=== PATIENT | male | born 1960 | race Two or more races ===

== ENCOUNTER 2018-02-24 23:43 | Emergency (ER) | payer BC, OTHER ==
[~2018-02-24] VITALS: Ht 170.2 cm; Wt 74.4 kg
--- NOTE | 2018-02-24 23:54 | NUR ---
PT BBRA FROM HOME C/O "TOOK SOME SUPPLEMENTS AT 1400 AND STARTED HAVING HEART BURN AT 1600 WITH +N/V, -D". PT IS AAOX4. -DIZZINESS. PT UNABLE TO RECALL EXACT NAME OF SUPPLEMENT TAKEN. PT STATES " I AM TIRED AND DEHYDRATED AND VOMITTED AROUND 18 TIMES TODAY". RESP EVEN AND UNLABORED. NO S/S OF ACUTE DISTRESS NOTED. VSS. PT SAFETY AND COMFORT MEASURES IN PLACE. PT PLACED ON MONITOR AND POX. AWAITING MD FOR EVAL.
[2018-02-25] MEDS ORDERED: ONDANSETRON HCL/PF 4 MG/2 ML VIAL IVP ONE (00:30)
[2018-02-25] MEDS ORDERED: IV NS 0.9% 1,000 ML BAG IV ONE (00:30)
[2018-02-25] MEDS ORDERED: PANTOPRAZOLE 40 MG VIAL IV ONE (00:30)
[2018-02-25] MEDS ORDERED: PANTOPRAZOLE 40 MG VIAL ONE (00:45)
[2018-02-25] MEDS ORDERED: ONDANSETRON HCL/PF 4 MG/2 ML VIAL ONE (00:45)
[2018-02-25 00:54] LABS: EOSINOPHILS % (AUTO) 0.2 % (0.0-6.0); HEMATOCRIT 43 % (39-51); HEMOGLOBIN 14.6 g/dL (13.5-17.5); LYMPHOCYTES # (AUTO) 0.2 /CMM (0.8-4.8); LYMPHOCYTES % (AUTO) 1.7 % (20.0-44.0); MEAN CORPUSCULAR HGB CONC 34 g/dl (31.0-36.0); MEAN CORPUSCULAR VOLUME 87 fL (80-96); MONOCYTES # (AUTO) 0.3 /CMM (0.1-1.30); MONOCYTES % (AUTO) 3.7 % (2.0-12.0); NEUTROPHILS # (AUTO) 8.7 /CMM (1.8-8.9); NEUTROPHILS % (AUTO) 94.4 % (43.0-81.0); PLATELET COUNT (AUTO) 179 /CMM (150-450); RDW COEFFICIENT OF VARIATION 12.5 (11.5-15.0); RED BLOOD CELL COUNT(AUTO) 4.92 MIL/uL (4.5-6.0); WHITE BLOOD COUNT (AUTO) 9.2 K/uL (4.3-11.0)
[2018-02-25 01:14] LABS: CREATININE 1.2 mg/dL (0.6-1.3); POTASSIUM 4.4 mmol/L (3.5-5.1)
[2018-02-25 01:19] LABS: ALBUMIN 3.7 g/dL (3.4-5.0); BILIRUBIN,DIRECT 0.1 mg/dL (0.0-0.2); BILIRUBIN,TOTAL 0.9 mg/dL (0.2-1.0); TOTAL PROTEIN, SERUM 6.8 g/dL (6.4-8.2)
--- NOTE | 2018-02-25 01:57 | NUR ---
WATER GIVEN TO PT PER [facility] ORDERS. WILL CONTINUE TO MONITOR PT.
--- NOTE | 2018-02-25 02:30 | NUR ---
Patient discharged to home in stable condition. Written and verbal after care instructions given. Patient verbalizes understanding of instruction.IV removed. Catheter intact and site benign. Pressure and 4x4 applied to site. No bleeding noted. VSS UPON DISCHARGE.
[2018-02-25 02:32] VITALS: BP 144/61
== END 2018-02-25 02:33 | disposition home or self-care (01) ==
LOC: ER 23:45
DX: E86.0 Dehydration (principal); R11.2 Nausea with vomiting, unspecified; R79.89 Other specified abnormal findings of blood chemistry; R12 Heartburn
CPT/HCPCS: 36415; 80048-TC; 80076-TC; 83690-TC; 85025-TC; A4606; C9113; J2405; J7030; Z7610